=== PATIENT | female | born 1950 | race Two or more races ===

== ENCOUNTER 2021-09-22 00:16 | Emergency (ER) | payer MEDICARE, MEDICAID ==
[~2021-09-22] VITALS: Ht 160 cm; Wt 70.0 kg
[2021-09-22] MEDS ORDERED: LIDOcaine 2% (20mg/ml) 5ml vial SQ ONE (01:00)
[2021-09-22 02:29] VITALS: BP 124/79
== END 2021-09-22 02:31 | disposition home or self-care (01) ==
LOC: ER 00:17
DX: T16.2XXA Foreign body in left ear, initial encounter (principal); I10 Essential (primary) hypertension; E11.9 Type 2 diabetes mellitus without complications
CPT/HCPCS: 69200; 99284; J3490